=== PATIENT | female | born 1960 | race Caucasian/White ===

== ENCOUNTER 2019-04-01 19:27 | Emergency (ER) | payer OTHER ==
[~2019-04-01] VITALS: Ht 165.1 cm; Wt 104.3 kg
[2019-04-01] MEDS ORDERED: HYDROCHLOROTHIA25 M2 PO (19:41)
[2019-04-01 19:42] LABS: URINE BILIRUBIN NEGATIVE (Negative); URINE BLOOD NEGATIVE (Negative); URINE CLARITY SL CLOUDY; URINE COLOR YELLOW; URINE GLUCOSE-RANDOM* NEGATIVE (Negative); URINE KETONES TRACE (Negative); URINE LEUKOCYTES-REFLEX NEGATIVE (Negative); URINE NITRITE-REFLEX NEGATIVE (Negative); URINE PROTEIN (DIPSTICK) NEGATIVE (Negative); URINE SPECIFIC GRAVITY 1.025 (1.005-1.035); URINE UROBILINOGEN 0.2 E.U./dl (0.2-1.0)
[2019-04-01] MEDS ORDERED: BUSPIRONE HCL15 MG (19:42)
[2019-04-01] MEDS ORDERED: OXCARBAZEPINE300 MG PO (19:42)
[2019-04-01] MEDS ORDERED: ARIPIPRAZOLE10 MG PO (19:42)
[2019-04-01 21:50] LABS: BASOPHILS 0.7 % (0.0-2.0); HEMOGLOBIN 15.2 gm/dL (12.0-15.0); LYMPHOCYTES 29.1 % (24.0-44.0); MCH 31.1 pg (26.0-34.0); MCHC 33.7 g/dL (28.0-37.0); MCV 92.4 fL (80.0-100.0); MONOCYTES 4.9 % (1.0-8.0); PLATELET COUNT 242 thou/uL (150-400); POLYS 63.3 % (36.0-66.0); RBC 4.87 mil/uL (4.20-5.00); RDW 14.4 % (10.5-14.5)
[2019-04-01 21:53] LABS: CALCIUM 8.7 mg/dL (8.5-10.1); CREATININE 0.9 mg/dL (0.6-1.0); POTASSIUM 3.6 mmol/L (3.5-5.1)
[2019-04-01 21:59] LABS: ALBUMIN 2.9 g/dL (3.4-5.0); TOTAL BILIRUBIN 0.3 mg/dL (<0.1-1.0); TOTAL PROTEIN 6.5 g/dL (6.4-8.2)
[2019-04-01] MEDS ORDERED: NORCO 7.5-3251 EACH PO (23:04)
[2019-04-01] MEDS ORDERED: LIDOCAINE PAIN1 EACH TOP (23:04)
[2019-04-01] MEDS ORDERED: CYCLOBENZAPRINE5 MG PO (23:04)
[2019-04-01 23:25] VITALS: BP 154/86
== END 2019-04-01 23:26 | disposition home or self-care (01) ==
LOC: ER 19:27
PROVIDERS: Emergency Medicine; Physician Assistant
DX: M54.5 Low back pain (principal); F17.210 Nicotine dependence, cigarettes, uncomplicated

== ENCOUNTER 2020-06-28 00:44 | Emergency (ER) | payer OTHER ==
[~2020-06-28] VITALS: Ht 162.6 cm; Wt 77.1 kg
[~2020-06-28 00:44] MED LIST: ARIPIPRAZOLE10 MG PO; BUSPIRONE HCL15 MG; CYCLOBENZAPRINE5 MG PO; HYDROCHLOROTHIA25 M2 PO; LIDOCAINE PAIN1 EACH TOP; NORCO 7.5-3251 EACH PO; OXCARBAZEPINE300 MG PO
[2020-06-28] MEDS ORDERED: ABILIFY10 MG PO ×2 (00:57→02:12)
[2020-06-28] MEDS ORDERED: AMBIEN 10 MG TA10 MG PO (00:57)
[2020-06-28] MEDS ORDERED: CYCLOBENZAPRINE5 MG PO (00:58)
[2020-06-28 01:51] LABS: ABSOLUTE NEUTROPHILS 5.1 thou/uL (1.4-8.2); BASOPHILS 1.3 % (0.0-2.0); EOSINOPHILS 1.7 % (0.0-3.0); HEMATOCRIT 40.4 % (37.0-47.0); HEMOGLOBIN 13.5 gm/dL (12.0-15.0); LYMPHOCYTES 30.1 % (24.0-44.0); MCH 31.2 pg (26.0-34.0); MCHC 33.3 g/dL (28.0-37.0); MCV 93.5 fL (80.0-100.0); MONOCYTES 5.5 % (1.0-8.0); PLATELET COUNT 284 thou/uL (150-400); POLYS 61.4 % (36.0-66.0); RBC 4.32 mil/uL (4.20-5.00); RDW 13.9 % (10.5-14.5); WBC 8.3 thou/uL (4.0-11.0)
[2020-06-28 01:54] LABS: CALCIUM 8.9 mg/dL (8.5-10.1); CREATININE 1.3 mg/dL (0.6-1.0); POTASSIUM 3.3 mmol/L (3.5-5.1)
[2020-06-28 01:59] LABS: ALBUMIN 2.8 g/dL (3.4-5.0); TOTAL BILIRUBIN 0.3 mg/dL (0.2-1.0); TOTAL PROTEIN 6.3 g/dL (6.4-8.2)
[2020-06-28] MEDS ORDERED: OXTELLAR XR300 MG PO (02:12)
[2020-06-28] MEDS ORDERED: HYDROCHLOROTHIA25 M2 PO (02:12)
[2020-06-28 02:54] VITALS: BP 195/93
--- NOTE | 2020-06-28 09:33 | EKG ---
[address] [address] [place] [address] ELECTROCARDIOGRAM REPORT Name: CLINTONEZ Room #: [facility]#: [id number] Admission: 06/28/20 Attend Phys: Discharge: 06/28/20 Date of : 64 Report #: [id number] [facility] ED Test Date: 2020-06-28 Test Time: 01:22:55 Pat Name: EZ ALONZO Department: Room: Gender: F Rod Pointer: [facility] : 1960 Requested By: Kalia Lake Order Number: [id number] MD: Alex Rosas Measurements Intervals [place] Rate: 75 P: 69 ND: 218 QRS: 69 QRSD: 89 T: 176 QT: 355 QTc: 397 Interpretive Statements Sinus rhythm Borderline prolonged ND interval Probable left atrial enlargement Nonspecific repol abnormality, diffuse leads Artifact in lead(s) I,II,III,aVR,aVL,aVF No previous ECG available for comparison Electronically Signed On 06-28-2020 9:33:19 DIRECTOR OF RESIDENTIAL SERVICES by Alex Rosas [email or web address] <ELECTRONICALLY SIGNED> By: Alex Rosas MD 06/28/20 0933 012 Alex Rosas MD /LAURA
== END 2020-06-28 02:51 | disposition home or self-care (01) ==
LOC: ER 00:44
PROVIDERS: Emergency Medicine
DX: I10 Essential (primary) hypertension (principal); F31.9 Bipolar disorder, unspecified; M79.10 Myalgia, unspecified site; R60.0 Localized edema; J44.9 Chronic obstructive pulmonary disease, unspecified; F17.210 Nicotine dependence, cigarettes, uncomplicated; Z79.899 Other long term (current) drug therapy

== ENCOUNTER 2020-09-03 10:34 | Emergency (ER) | payer OTHER ==
[~2020-09-03] VITALS: Ht 160 cm; Wt 90.7 kg
[~2020-09-03 10:34] MED LIST changes: +ABILIFY10 MG PO; +AMBIEN 10 MG TA10 MG PO; +OXTELLAR XR300 MG PO
[2020-09-03 11:01] LABS: EOSINOPHILS 1.7 % (0.0-3.0); HEMATOCRIT 40.4 % (37.0-47.0); HEMOGLOBIN 13.6 gm/dL (12.0-15.0); LYMPHOCYTES 31.8 % (24.0-44.0); MCH 30.1 pg (26.0-34.0); MCHC 33.7 g/dL (28.0-37.0); MCV 89.4 fL (80.0-100.0); PLATELET COUNT 299 thou/uL (150-400); POLYS 59.5 % (36.0-66.0); RBC 4.52 mil/uL (4.20-5.00); RDW 13.5 % (10.5-14.5); WBC 8.4 thou/uL (4.0-11.0)
[2020-09-03 11:10] LABS: CALCIUM 8.8 mg/dL (8.5-10.1); CREATININE 1.1 mg/dL (0.6-1.0); POTASSIUM 3.3 mmol/L (3.5-5.1)
[2020-09-03 11:16] LABS: ALBUMIN 3.1 g/dL (3.4-5.0); TOTAL BILIRUBIN 0.4 mg/dL (0.2-1.0); TOTAL PROTEIN 6.7 g/dL (6.4-8.2)
[2020-09-03 19:15] VITALS: BP 137/80
--- NOTE | 2020-09-04 06:58 | EKG ---
[facility] [place] [employer] [place] [address] ELECTROCARDIOGRAM REPORT Name: CLINTONEZ Room #: [facility]#: [id number] Admission: 09/03/20 Attend Phys: Discharge: 09/03/20 Date of : 64 Report #: [id number] [facility] ED Test Date: 2020-09-03 Test Time: 11:01:10 Pat Name: EZ ALONZO Department: Room: Gender: F Pneumatic Riveter: MIGUEL ANGEL : 1960 Requested By: Jolene Nieves Order Number: [id number] MD: Saeid French Measurements Intervals [place] Rate: 88 P: 51 LA: 186 QRS: 17 QRSD: 108 T: 161 QT: 345 QTc: 418 Interpretive Statements Pacemaker spikes or artifacts Sinus rhythm Probable left atrial enlargement RSR' in V1 or V2, right VCD or RVH Nonspecific T abnormalities, lateral leads Compared to ECG 06/28/2020 01:22:55 Right ventricular hypertrophy now present RSR' in V1 or V2 now present T-wave abnormality now present Early repolarization no longer present Electronically Signed On 09-04-2020 6:58:30 DANCER OR CHOREOGRAPHER by Saeid French [email or web address] <ELECTRONICALLY SIGNED> By: Saeid French MD, FAC 09/04/20 0658 110 00 Saeid French MD, FAC /EPI
== END 2020-09-03 19:22 | disposition home or self-care (01) ==
LOC: ER 10:34
PROVIDERS: Emergency Medicine
DX: F91.1 Conduct disorder, childhood-onset type (principal); F15.10 Other stimulant abuse, uncomplicated; I10 Essential (primary) hypertension; J44.9 Chronic obstructive pulmonary disease, unspecified; F17.210 Nicotine dependence, cigarettes, uncomplicated